=== PATIENT | male | born 1980 | race Caucasian/White ===

== ENCOUNTER → 2018-01-05 | Outpatient (CLI) | payer OTHER ==
[~2018-01-05] MED LIST: ALDACTONE25 MG PO; HYDROCHLOROTH12.5 M1 PO; HYDROCODONE-AP1 EAC6 PO; IBUPROFEN 200200 M1 PO; MEDROLDOSEPACK PO; PRINIVIL10 MG PO; TOPROL XL25 MG; TOPROL XL25 MG PO; ZANFEL30 GM TP; ZORVOLEX18 MG PO; ZYRTEC10 MG PO
== END ==
LOC: M.RAD 16:09
DX: M43.02 Spondylolysis, cervical region (principal)